=== PATIENT | male | born 1960 | race Caucasian/White ===

== ENCOUNTER 2020-04-17 11:45 | Emergency (ER) | payer OTHER ==
[~2020-04-17] VITALS: Ht 182.9 cm; Wt 86.0 kg
[~2020-04-17 11:45] MED LIST: APIX5TAB PO; ASCO100T12 MT; CARV6.2548 MT; CARV6.2548 PO; FERROUS; FURO-151 MT; FUROSEMIDE 40 MG; HYDR10TA34 PO; LACT10SO7 MT; LACTULOSE PO; LISI2.5T47 PO; MAGN400T26 PO; POTA-9 PO; POTA20LI52 MT; POTA20TA82 MT; THIA100T72 PO; [UNRECOGNIZED DRUG - OTHER]
[2020-04-17 11:50] VITALS: BP 207/156
[2020-04-17] MEDS ORDERED: ASPIRIN 81MG TABLET PO ONE (12:30)
== END 2020-04-17 13:58 | disposition left against medical advice (07) ==
LOC: ER 11:45
DX: R06.03 Acute respiratory distress (principal); J44.9 Chronic obstructive pulmonary disease, unspecified; Z53.21 Procedure and treatment not carried out due to patient leaving prior to being seen by health care provider
CPT/HCPCS: 93005; Z7610